=== PATIENT | female | born 1965 | race Caucasian/White ===

== ENCOUNTER → 2021-07-17 13:59 | Outpatient (CLI) | payer MEDICARE, MEDICAID, SELFPAY ==
--- NOTE | 2021-07-17 14:03 | DI.MRI.S_ITS ---
PROCEDURE: MR LUMBAR SPINE WO CON INDICATIONS: Spinal stenosis, lumbar region with neurogenic cla TECHNIQUE: Noncontrast sagittal T1 spin echo and T2 fast echo, coronal T2, sagittal STIR, axial T1 and T2 fast spin echo through the lumbar spine. COMPARISON: [facility], CR, XR LUMBAR SPINE 2 OR 3 VIEWS, 06/05/2021, 14:14. [facility] [place], CR, XR LUMBAR SPINE WITH OLBIQUES PLUS FLEXION EXTENSION, 07/07/2021, 15:39. FINDINGS: Image quality: Excellent. Alignment and Curvature: 5 lumbar type vertebral bodies are present by plain film. Mild grade 1 retrolisthesis of L2 on L3. Mild grade 1 anterolisthesis of L3 on L4. Mild diffuse leftward curvature of the lumbar spine. Bone Marrow: Marrow is of normal overall signal. No acute vertebral body compression fractures. Mild reactive signal within the endplates adjacent to the L3-L4 intervertebral disc. Spinal Cord: Conus medullaris terminates at the mid L1 level. Visualized cord demonstrates normal signal and size. Paraspinous Soft Tissues: No paravertebral masses. T12-L1: Mild disc height loss and desiccation. No significant canal, or foraminal stenosis. L1-L2: Mild disc height loss and desiccation. No significant canal, or foraminal stenosis. L2-L3: Mild disc desiccation and diffuse disc bulge. Mild bilateral facet hypertrophy. Mild bilateral foraminal stenosis. Mild canal stenosis. L3-L4: Mild disc height loss and desiccation. Mild facet and ligamentum flavum hypertrophy. Mild epidural lipomatosis. Mild canal stenosis. Mild bilateral foraminal stenosis. L4-L5: Mild disc desiccation and diffuse disc bulge. Mild bilateral facet hypertrophy. Mild canal stenosis. Mild bilateral foraminal stenosis. L5-S1: Mild bilateral facet hypertrophy. No significant canal, or foraminal stenosis. IMPRESSION: 1. Multilevel degenerative disc and facet disease, causing mild multilevel canal and foraminal stenosis. 2. No neural impingement. Dictated by: Alice Kidd M.D. on 07/17/2021 at 15:43 Approved by: Alice Kidd M.D. on 07/17/2021 at 15:46
== END ==
PROVIDERS: Referring Provider Physical Medicine & Rehabilitation Pain Medicine; Visit Provider Physical Medicine & Rehabilitation Pain Medicine
DX: M48.062 Spinal stenosis, lumbar region with neurogenic claudication (principal); M51.36 Other intervertebral disc degeneration, lumbar region
CPT/HCPCS: 72148

== ENCOUNTER 2021-09-13 12:42 | Emergency (ER) | payer MEDICARE, MEDICAID, SELFPAY ==
[2021-09-13 13:09] VITALS: BP 127/71; PULSE 78; RESP 18; TEMP 36.8; O2SAT 100; BMI 23.1
--- NOTE | 2021-09-13 13:15 | DI.RAD.S_ITS ---
PROCEDURE: XR ANKLE LT MIN 3V INDICATIONS: injury TECHNIQUE: 3 views of the ankle were acquired. COMPARISON: None. FINDINGS: Bones: No fractures or dislocations. Ankle mortise is normally aligned. No suspicious bony lesions. Soft tissues: No tibiotalar joint effusion. Achilles tendon appears normal. IMPRESSION: No acute fracture. No osseous lesion. If symptoms and/or clinical suspicion for pathology persist, further assessment with repeat, or advanced imaging (e.g., CT, MRI, or bone scan) may be helpful for further assessment. Dictated by: Alice Kidd M.D. on 09/13/2021 at 12:35 Approved by: Alice Kidd M.D. on 09/13/2021 at 12:36
--- NOTE | 2021-09-13 13:15 | DI.RAD.S_ITS ---
PROCEDURE: XR FOOT LT MIN 3V INDICATIONS: injury TECHNIQUE: 3 views of the foot were acquired. COMPARISON: None. FINDINGS: Bones: Linear lucency traverses the proximal aspects of the 3rd and 4th metatarsals. Soft tissues: No tibiotalar joint effusion. Achilles tendon appears normal. IMPRESSION: Minimally displaced fractures of the proximal 3rd and 4th metatarsals. Dictated by: Alice Kidd M.D. on 09/13/2021 at 12:37 Approved by: Alice Kidd M.D. on 09/13/2021 at 12:37
--- NOTE | 2021-09-13 14:10 | ED_ITS ---
HPI - Extremity Injury (Lower) <BRYCE Syed - Last Filed: 09/13/21 15:02> General Chief Complaint: Extremity Injury, Lower Stated Complaint: fall off of curb. twistedleftside foot and knee Time Seen by Provider: 09/13/21 14:09 Source: patient Mode of arrival: Wheelchair History of Present Illness HPI Narrative: 36-year-old female presents to the emergency department with left foot pain after she reports she slipped off of a stair landing on her left foot and fell immediate pain. Patient has bruising to the top and bottom of her foot, complains the pain is middle and she is not tolerating bearing weight at this time. She has been scooting around using her heel for balance. Patient reports she took some ibuprofen last night which was helpful. She does not want anything additional for pain at this time. She is currently icing her foot with elevated. Related Data Previous Rx's Medication Instructions Recorded hydrocodone 5 mg-acetaminophen 325 1 tab PO BEDTIME PRN #7 tab 09/13/21 mg tablet Allergies Allergy/AdvReac Type Severity Reaction Status Date / Time ketamine AdvReac Hallucinati Verified 09/13/21 13:14 ng Review of Systems <BRYCE Syed - Last Filed: 09/13/21 15:02> Review of Systems Narrative: General: denies fever, chills Head/Neck: denies headache, neck pain Eyes: denies visual changes, eye pain Cardio: denies chest pain, palpitations Respiratory: denies shortness of breath, cough GI: denies abdominal pain, nausea, vomiting, or diarrhea : denies dysuria, hematuria MSK: denies joint pain, muscle weakness, complains of left foot pain inability to bear weight Skin: denies rash, itching Neuro: denies numbness, tingling Patient History <BRYCE Syed - Last Filed: 09/13/21 15:02> Social History Smoking Status: Current every day smoker Smoking Status: Current every day smoker Substance Use Type: marijuana Exam <BRYCE Syed - Last Filed: 09/13/21 15:02> Narrative Exam Narrative: Independently reviewed vitals signs and nursing notes. General: Awake, alert, nontoxic, no cardiorespiratory distress Head/Neck: Atraumatic, neck full range of motion Eyes: EOMI, conjunctiva normal Nose: nares patent, no rhinorrhea Mouth/Throat: moist mucus membranes, posterior pharynx normal, no oral lesions Cardio: Regular rate and rhythm, no peripheral edema Respiratory: respirations unlabored without wheezing, stridor, or rales. No retractions. GI: Abdomen soft, nontender MSK: Moves all extremities, neurovascularly intact, left DP and PT pulses are 2+, cap refill less than 2 seconds, patient has pain on both her dorsum and plantar surfaces of her left mid foot, flexion and extension intact, ecchymosis present on dorsum and plantar surfaces without wound Skin: Normal capillary refill, no rash Neuro: Normal speech and cognition, normal gait Initial Vital Signs Initial Vital Signs: Vital Signs Temperature 98.2 F 09/13/21 13:09 Pulse Rate 78 09/13/21 13:09 Respiratory Rate 18 09/13/21 13:09 Blood Pressure 127/71 09/13/21 13:09 Pulse Oximetry 100 09/13/21 13:09 Procedures <BRYCE Syed - Last Filed: 09/13/21 15:02> Orthopedic Splinting/Casting Injury #1: Side: left Lower Extremity Injury Location: foot Lower Extremity Immobilizer: post-op shoe Other Orthopedic Equipment: crutches Post splinting neuro exam: intact Post splinting vascular exam: intact Placed by: Nursing Course <BRYCE Syed - Last Filed: 09/13/21 15:02> Orders Ordered: ED Orders 09/13/21 13:15 XR ankle LT min 3V Stat XR foot LT min 3V Stat Vital Signs Vital signs: Vital Signs - 8 hr 09/13/21 13:09 Temperature 98.2 F Pulse Rate 78 Respiratory Rate 18 Blood Pressure 127/71 Pulse Oximetry 100 MDM - Extremity Injury (Lower) <BRYCE Syed Last Filed: 09/13/21 15:02> Imaging Data Extremity x-ray #1: Radiologist's Impression: PROCEDURE:? XR ANKLE LT MIN 3V ? INDICATIONS:? injury ? TECHNIQUE:? 3 views of the ankle were acquired.? ? COMPARISON:? None. ? FINDINGS:? ? Bones:? No fractures or dislocations.? Ankle mortise is normally aligned.? No suspicious bony lesions.? ? Soft tissues:? No tibiotalar joint effusion.? Achilles tendon appears normal.? ? ? IMPRESSION:? No acute fracture. No osseous lesion. If symptoms and/or clinical suspicion for pathology persist, further assessment with repeat, or advanced imaging (e.g., CT, MRI, or bone scan) may be helpful for further assessment. ? ? Dictated by: Alice Kidd M.D. on 09/13/2021 at 12:35 ? ? Approved by: Alice Kidd M.D. on 09/13/2021 at 12:36 ? Extremity x-ray #2: Radiologist's Impression: PROCEDURE:? XR FOOT LT MIN 3V ? INDICATIONS:? injury ? TECHNIQUE:? 3 views of the foot were acquired.? ? COMPARISON:? None. ? FINDINGS:? ? Bones:? Linear lucency traverses the proximal aspects of the 3rd and 4th metatarsals. ? Soft tissues:? No tibiotalar joint effusion.? Achilles tendon appears normal.? ? ? IMPRESSION:? Minimally displaced fractures of the proximal 3rd and 4th metatarsals. ? ? Dictated by: Alice Kidd M.D. on 09/13/2021 at 12:37 ? ? Approved by: Alice Kidd M.D. on 09/13/2021 at 12:37 ? MDM Narrative Medical decision making narrative: [age] year old female presents to the emergency department left foot pain after slipping off of a step and landing on her left foot yesterday. She has minimally displaced fractures of her proximal 3rd and 4th metatarsals. She has ecchymosis present on the dorsum and patellar aspect of her left mid foot. Patient was fitted in a postop shoe, given crutches for nonweightbearing. I recommend her following up with Dr. Avalos in [place] Tuesday and scheduling an appointment for 1 week from now. The patient had +2 DP and PT pulses of her left foot, cap refills less than 2 seconds, she was able to ambulate with crutches without bearing weight on her left side. Discharge Plan Departure Patient Disposition: Home Clinical Impression: Metatarsal fracture Qualifiers: Encounter type: initial encounter Metatarsal bone: unspecified metatarsal Fracture type: closed Fracture alignment: displaced Laterality: left Qualified Code(s): S92.302A - Fracture of unspecified metatarsal bone(s), left foot, initial encounter for closed fracture Instructions: DI for Foot Fracture Activity Restrictions/Additional Instructions: *You have been diagnosed with fractures of your proximal 3rd and 4th metatarsals. Please continue to ice elevate, wear this post op shoe as much as possible until you follow-up with orthopedics. This physician last GI specialty in feet he has excellent and I recommend him for follow-up. Please coal picker your hydrocodone at the pharmacy to help with pain especially at night if you need. You can also use ibuprofen which may help with the swelling. Please stay off your left foot, and I wish you the best. *What to do: *Please continue to take your regular medications as directed. [x ] New medication prescriptions sent to your pharmacy: [hydrocodone [facility] ] [ ] New medication written as a paper prescription [ ] No new medications given *Please follow up with your primary care provider in 2-3 days, call for an appointment. Let them know you were seen in the Emergency Department and that we ask that you be seen in follow up. We will electronically transmit a record of today's note if your PCP is in our system *If you do not have a primary care provider please contact the [facility] Resource line at [phone]. They will ask some questions about your medical history and help get you set up with a doctor in the community. *Return to Emergency Department if you should have any new, worsening or concerning symptoms, such as [fever greater than 101F, chills, worsening pain, persistent vomiting or other bothersome symptoms] Prescriptions: New hydrocodone-acetaminophen 5-325 mg tablet 1 tab PO BEDTIME PRN (Reason: pain) Qty: 7 0RF Referrals: Mike Avalos MD [Non-Staff] - 3-5 days
== END 2021-09-13 14:56 | disposition home or self-care (01) ==
PROVIDERS: Emergency Provider Nurse Practitioner Critical Care Medicine
DX: S92.332A Displaced fracture of third metatarsal bone, left foot, initial encounter for closed fracture (principal); S92.342A Displaced fracture of fourth metatarsal bone, left foot, initial encounter for closed fracture; X50.1XXA Overexertion from prolonged static or awkward postures, initial encounter
CPT/HCPCS: 73610; 73630; 99283